=== PATIENT | male | born 1975 | race Caucasian/White ===

== ENCOUNTER 2020-07-15 00:04 | Observation (INO) ==
[2020-07-15] MEDS ORDERED: KETOROLAC 30 MG/ML VIAL IV STA (00:31)
--- NOTE | 2020-07-15 00:37 | Emergency Department Note ---
Impression & Plan Renal colic on left side ED Provider Note NAME: ARMANI SANTANA AGE: 44 SEX: M ARRIVES VIA: Walk-In INFORMANT: Patient ED PROVIDER(S): Margarita Boyle DO CHIEF COMPLAINT: Left flank pain PLAN: Disposition: Admitted to the [facility] service Condition: Stable MEDICAL DECISION MAKING: This is a 44-year-old male patient who presents the emergency department with a 36-hour history of left CVA pain. The patient has a history of a previous left kidney injury from a football game which required aeromedical transport to [place] for what he describes as a ruptured kidney. He describes fully recovering from this. The patient denies any recent trauma or urinary symptoms at this time. CT scan shows no evidence of a stone that would explain his symptoms at this time but there is evidence of hydronephrosis. His symptoms seem to be consistent with renal colic. He is requiring IV analgesia to maintain pain management. [facility] for further management. They will consult urology Triage Nursing notes reviewed and agree them. Prior medical records reviewed Vital Signs: reviewed and remarkable for no significant abnormalities Differential diagnosis: Pyelonephritis, ureteral colic, renal colic obstructive uropathy, kidney stone, renal cyst, ER treatment provided: IV normal saline solution IV Toradol IV Zofran IV Dilaudid x2 Diagnostics interpreted by me: Cardiac Monitoring: Normal sinus rhythm at a rate of 84 Laboratory studies: See below Imaging studies: As per stat rad CT abdomen and pelvis without contrast: No priors. Dependent predominant lung opacity likely hypoventilatory change/atelectasis. No urinary tract calculi. Possible left hydronephrosis though some of this appearance may relate to peripelvic cysts. The left ureter is of normal caliber. There is some asymmetric infiltration around the left kidney. Pyelonephritis/urinary tract infection not excluded. Recommend clinical correlation with UA. If there is concern for hydronephrosis, ultrasound could further assess. Suspect at least one peripelvic renal cyst on the right. Diverticulosis. No diverticulitis or other acute process. Fat-containing left internal hernia without evidence of strangulation and other nonemergent incidental findings. See final report Renal ultrasound: Previous CT from August 2016 is now available for review as well as more recent CT. Suspected peripelvic cyst in the right kidney. No right hydronephrosis. S uspect left hydronephrosis though would question whether there are also left peripelvic cysts. In any case, given similar appearance of left renal collecting system on 2016 study and more recent July 15 study findings appear chronic no left hydroureter on either CT. Bilateral ureteral jets seen on Doppler imaging of bladder HPI: 44/M arrives for evaluation of left flank pain. Approximately 36 hours ago, the patient developed some left sided flank pain that seemed to subside. The patient thought this may be a muscle pain. He took Naprosyn before bed last evening and was feeling somewhat better. He had pain intermittently throughout the evening. But then at 1115 tonight, the pain became quite severe and the patient was nauseated. The patient denies ever having pain quite this severe in the past except for when he had a ruptured kidney from trauma. ROS: See above HPI for pertinent positives & negatives. A total of 10 systems reviewed and were otherwise negative. PAST MEDICAL HISTORY:Previous ruptured kidney from trauma PAST SURGICAL HISTORY:Previous ureteral stent HOME MEDICATIONS:See list ALLERGIES:None VITALS:See Below PHYSICAL EXAMINATION: HEENT: Head - normocephalic and atraumatic Pupils are equal, round, and reactive to light. Extraocular eye muscles are intact, and sclera are anicteric. Nose - moist nasal mucosa without discharge. Mouth - moist buccal mucosa. Oropharynx is nonerythematous and there is no tonsillar exudate or edema noted. Neck: Supple; no JVD, nuchal rigidity, cervical lymphadenopathy, or auscultated bruits. Heart: Regular rate and rhythm. There is a normal S1 and S2 with no murmurs, clicks, or gallops appreciated. Lungs: Clear to auscultation bilaterally with no wheezes, rales, or rhonchi. Abdomen: Soft, completely nontender, nondistended, with good bowel sounds. There are no palpable pulsatile masses or hepatosplenomegaly. There is no guarding, rigidity, or rebound noted. Back: The patient has exquisite left CVA discomfort with no skin lesions noted. Extremities: No evidence of cyanosis, clubbing, or edema. There are easily palpable peripheral pulses. Skin: warm and dry with good turgor and no rashes. ED COURSE: Times/Reassessments: 0020: Patient was evaluated in room C9. A complete history and physical was performed. An IV lock was initiated and labs were drawn as above. The patient is urine was dipped and was positive for trace blood. Patient was given 30 mg of IV Toradol and ordered for a bolus of normal saline solution. 0045: The patient still has severe left CVA pain and cannot lay flat for CT scan. He will be given 1 mg of IV Dilaudid for his pain. The patient went for CT scan of the abdomen/pelvis as described above. The patient is somewhat more comfortable and will go for a renal ultrasound. He continued to complain of fairly severe pain in the left flank and was given a second 1 mg dose of IV Dilaudid. 0540: I reviewed the results of the renal ultrasound with the patient. He remains uncomfortable on exam. I will discuss the case with the [facility] hospitalist Margarita Boyle, DO Past Med/Surg History Social History Smoking Status: Never smoker Hx Alcohol Use: No Hx Substance Use: No Preferred Language: Uzbek Communication Ability: Effective Beliefs That Will Affect Care: None Current Living Situation: Spouse Feels Safe at Home: Yes Assistive Devices: None Allergies Allergies Allergy/AdvReac Type Severity Reaction Status Date / Time No Known Allergies AdvReac Unknown Unverified 07/15/20 00:16 Home Meds Home Medications Medication Instructions Recorded Confirmed pantoprazole 40 mg PO BID 07/15/20 07/15/20 Results & Data (ED) Vital Signs Vital Signs - 24 hr 07/15/20 00:09 07/15/20 01:30 07/15/20 01:40 Temperature 36.5 C Temperature Source Oral Pulse Rate 76 Pulse Rate from SpO2 Sensor 80 Respiratory Rate 20 18 Respiratory Effort / Characteristics Non-Labored Spontaneous Respiratory Depth Normal Blood Pressure 145/95 H 120/75 Blood Pressure Mean 111 89 Pulse Oximetry 99 99 78 L Oxygen Delivery Method Room Air Room Air Room Air Oxygen Flow Rate Sepsis New/Unexplained Change in Mental Status N/A Sepsis Action Taken by Nursing No Action Required 07/15/20 01:41 07/15/20 03:00 07/15/20 03:47 Temperature Temperature Source Pulse Rate Pulse Rate from SpO2 Sensor 60 63 Respiratory Rate 18 Respiratory Effort / Characteristics Respiratory Depth Blood Pressure 123/78 126/64 Blood Pressure Mean 90 76 Pulse Oximetry 98 98 97 Oxygen Delivery Method Nasal Cannula Nasal Cannula Room Air Oxygen Flow Rate 2 2 Sepsis New/Unexplained Change in Mental Status Sepsis Action Taken by Nursing 07/15/20 04:00 07/15/20 04:30 07/15/20 05:00 Temperature Temperature Source Pulse Rate Pulse Rate from SpO2 Sensor 76 65 67 Respiratory Rate 18 20 18 Respiratory Effort / Characteristics Respiratory Depth Blood Pressure 115/54 L 118/78 116/71 Blood Pressure Mean 68 90 79 Pulse Oximetry 96 97 97 Oxygen Delivery Method Room Air Room Air Oxygen Flow Rate Sepsis New/Unexplained Change in Mental Status Sepsis Action Taken by Nursing 07/15/20 05:30 Temperature Temperature Source Pulse Rate Pulse Rate from SpO2 Sensor 62 Respiratory Rate 20 Respiratory Effort / Characteristics Respiratory Depth Blood Pressure 123/70 Blood Pressure Mean 84 Pulse Oximetry 98 Oxygen Delivery Method Oxygen Flow Rate Sepsis New/Unexplained Change in Mental Status Sepsis Action Taken by Nursing Laboratory Data Result diagrams: 07/15/20 00:41 07/15/20 00:41 Lab Results 07/15/20 07/15/20 07/15/20 Range/Units 00:30 00:41 00:41 WBC 6.86 (4.8-10.8) K/uL RBC 5.00 (4.7-6.1) M/uL Hgb 15.3 (14.0-18.0) g/dL Hct 43.1 (42-52) % MCV 86.2 (80-100) fL MCH 30.6 (25-34) pg MCHC 35.5 (32-36) g/dL RDW Std Deviation 39.9 (36.4-46.3) fL RDW Coeff of Milo 12.7 (11.5-14.5) % Plt Count 255 (130-400) K/uL MPV 10.6 H (7.4-10.4) fL Immature Gran % (Auto) 0.3 % Neut % (Auto) 48.6 % Lymph % (Auto) 37.9 % Harper % (Auto) 10.5 % Eos % (Auto) 2.3 % Baso % (Auto) 0.4 % Neut # (Auto) 3.33 (1.4-6.5) K/uL Lymph # (Auto) 2.60 (1.2-3.4) K/uL Harper # (Auto) 0.72 H (0.11-0.59) K/uL Eos # (Auto) 0.16 (0-0.5) K/uL Baso # (Auto) 0.03 (0-0.2) K/uL Immature Gran # (Auto) 0.02 (0.00-0.02) K/uL Sodium 143 (136-145) mmol/L Potassium 3.7 (3.5-5.1) mmol/L Chloride 112 H (98-107) mmol/L Carbon Dioxide 23 (21-32) mmol/L Anion Gap 8.0 (3-11) BUN 19 H (7-18) mg/dl Creatinine 0.95 (0.6-1.4) mg/dl Est Cr Clr Drug Dosing 131.7 ml/min Est GFR ( Amer) 110.8 Est GFR (Non-Af Amer) 95.6 BUN/Creatinine Ratio 19.5 (10-20) Glucose 114 H (70-99) mg/dl Estimat Average Glucose mg/dl Hemoglobin A1c (4.5-5.6) % Calcium 9.0 (8.5-10.1) mg/dl Total Bilirubin 0.3 (0.2-1) mg/dl AST 23 (15-37) U/L ALT 30 (12-78) U/L Alkaline Phosphatase 69 (45-117) U/L Total Protein 7.3 (6.4-8.2) gm/dl Albumin 3.8 (3.4-5.0) gm/dl Globulin 3.5 (2.5-4.0) gm/dl Albumin/Globulin Ratio 1.1 (0.9-2) Lipase 84 (73-393) U/L Urine Color Yellow Urine Appearance Clear (Clear) Urine pH 6.5 (4.5-7.5) Ur Specific [place] 1.027 (1.000-1.030) Urine Protein Negative (Negative) Urine Glucose (UA) Negative (Negative) Urine Ketones Trace H (Negative) Urine Blood Negative (Negative) Urine Nitrite Negative (Negative) Urine Bilirubin Negative (Negative) Urine Urobilinogen Negative (Negative) Ur Leukocyte Esterase Negative (Negative) 07/15/20 Range/Units 00:41 WBC (4.8-10.8) K/uL RBC (4.7-6.1) M/uL Hgb (14.0-18.0) g/dL Hct (42-52) % MCV (80-100) fL MCH (25-34) pg MCHC (32-36) g/dL RDW Std Deviation (36.4-46.3) fL RDW Coeff of Milo (11.5-14.5) % Plt Count (130-400) K/uL MPV (7.4-10.4) fL Immature Gran % (Auto) % Neut % (Auto) % Lymph % (Auto) % Harper % (Auto) % Eos % (Auto) % Baso % (Auto) % Neut # (Auto) (1.4-6.5) K/uL Lymph # (Auto) (1.2-3.4) K/uL Harper # (Auto) (0.11-0.59) K/uL Eos # (Auto) (0-0.5) K/uL Baso # (Auto) (0-0.2) K/uL Immature Gran # (Auto) (0.00-0.02) K/uL Sodium (136-145) mmol/L Potassium (3.5-5.1) mmol/L Chloride (98-107) mmol/L Carbon Dioxide (21-32) mmol/L Anion Gap (3-11) BUN (7-18) mg/dl Creatinine (0.6-1.4) mg/dl Est Cr Clr Drug Dosing ml/min Est GFR ( Amer) Est GFR (Non-Af Amer) BUN/Creatinine Ratio (10-20) Glucose (70-99) mg/dl Estimat Average Glucose 108 mg/dl Hemoglobin A1c 5.4 (4.5-5.6) % Calcium (8.5-10.1) mg/dl Total Bilirubin (0.2-1) mg/dl AST (15-37) U/L ALT (12-78) U/L Alkaline Phosphatase (45-117) U/L Total Protein (6.4-8.2) gm/dl Albumin (3.4-5.0) gm/dl Globulin (2.5-4.0) gm/dl Albumin/Globulin Ratio (0.9-2) Lipase (73-393) U/L Urine Color Urine Appearance (Clear) Urine pH (4.5-7.5) Ur Specific [place] (1.000-1.030) Urine Protein (Negative) Urine Glucose (UA) (Negative) Urine Ketones (Negative) Urine Blood (Negative) Urine Nitrite (Negative) Urine Bilirubin (Negative) Urine Urobilinogen (Negative) Ur Leukocyte Esterase (Negative) Administered Medications Discontinued Medications Acetaminophen (Acetaminophen 325 Mg Tab) 650 mg PO Q4H PRN PRN Reason: pain/fever Stop: 08/14/20 08:04 Last Admin: 07/15/20 09:49 Dose: 650 mg Documented by: [id number] Hydromorphone HCl (Hydromorphone Inj 1 Mg/Ml Syringe) 1 mg IV NOW STA Stop: 07/15/20 00:56 Last Admin: 07/15/20 00:59 Dose: 1 mg Documented by: [id number] Hydromorphone HCl (Hydromorphone Inj 1 Mg/Ml Syringe) 1 mg IV NOW STA Stop: 07/15/20 01:51 Last Admin: 07/15/20 02:04 Dose: 1 mg Documented by: [id number] Sodium Chloride (Nss 1000ml) 1,000 mls @ 999 mls/hr IV .[id number] SEE Stop: 07/15/20 01:45 Last Infusion: 07/15/20 01:44 Dose: 0 mls/hr Documented by: [id number] Admin: 07/15/20 00:42 Dose: 999 mls/hr Documented by: [id number] Lactated Ringer's (Lr) 1,000 mls @ 80 mls/hr IV .[id number] SEE Stop: 08/14/20 08:04 Last Infusion: 07/16/20 12:05 Dose: 0 mls/hr Documented by: [id number] Admin: 07/16/20 07:31 Dose: 80 mls/hr Documented by: [id number] Infusion: 07/16/20 07:31 Dose: 80 mls/hr Documented by: [id number] Infusion: 07/16/20 07:11 Dose: 80 mls/hr Documented by: [id number] Admin: 07/15/20 20:19 Dose: 80 mls/hr Documented by: [id number] Infusion: 07/15/20 20:19 Dose: 80 mls/hr Documented by: [id number] Admin: 07/15/20 09:24 Dose: 80 mls/hr Documented by: [id number] Ioversol (Optiray 300) 50 ml IV ONCE ONE Stop: 07/15/20 13:49 Last Admin: 07/15/20 22:46 Dose: Not Given Documented by: [id number] Ketorolac Tromethamine (Ketorolac 30 Mg/Ml Vial) 30 mg IV NOW STA Stop: 07/15/20 00:32 Last Admin: 07/15/20 00:42 Dose: 30 mg Documented by: [id number] Morphine Sulfate (Morphine Sulfate 4 Mg/Ml 1 Ml Carp\Vial) 4 mg IV Q4H PRN PRN Reason: Pain Stop: 07/29/20 06:38 Last Admin: 07/15/20 12:58 Dose: 4 mg Documented by: [id number] Ondansetron HCl (Ondansetron Inj 2 Mg/Ml 2 Ml Vial) 4 mg IV NOW STA Stop: 07/15/20 00:32 Last Admin: 07/15/20 00:42 Dose: 4 mg Documented by: [id number] Admin: 07/15/20 00:42 Dose: 4 mg Documented by: [id number] Pantoprazole Sodium (Pantoprazole 40 Mg Tab) 40 mg PO BID SEE Stop: 08/14/20 08:59 Last Admin: 07/16/20 07:30 Dose: Not Given Documented by: [id number] Admin: 07/15/20 20:20 Dose: Not Given Documented by: [id number] Admin: 07/15/20 09:25 Dose: 40 mg Documented by: [id number] Discharge Plan Visit Data Chief Complaint: Back Injury/Pain Stated Complaint: KIDNEY PAIN LEFT SIDE ED Provider: Margarita Boyle Discharge Problem: Renal colic on left side Patient Disposition: Admitted As Inpatient Discharge Instructions Interventions: ED Discharge Assessment Last Done: 07/15/20 07:37
[2020-07-15 00:38] LABS: Appearance Urine Clear (Clear); Bilirubin Urine Negative (Negative); Blood Urine Negative (Negative); Color Urine Yellow; Glucose Urine UA Negative (Negative); Ketones Urine Trace (Negative); Leukocyte Esterase Urine Negative (Negative); Nitrite Urine Negative (Negative); Protein Urine Negative (Negative); Specific Gravity Urine 1.027 (1.000-1.030); Urobilinogen Urine Negative (Negative); pH Urine 6.5 (4.5-7.5)
[2020-07-15] MEDS: ONDANSETRON INJ 2 MG/ML 2 ML VIAL IV STA (00:42)
[2020-07-15] MEDS ORDERED: SODIUM CHLORIDE 0.9% 1000ML 1,000 ML IV SCH (00:45)
[2020-07-15 00:55] LABS: Basophils # (auto) 0.03 K/uL (0-0.2); Basophils % (auto) 0.4 %; Eosinophils # (auto) 0.16 K/uL (0-0.5); Eosinophils % (auto) 2.3 %; Hematocrit (blood only) 43.1 % (42-52); Hemoglobin 15.3 g/dL (14.0-18.0); Immature Granulocytes # (auto) 0.02 K/uL (0.00-0.02); Immature Granulocytes % (auto) 0.3 %; Lymphocytes % (auto) 37.9 %; Mean Corpuscular Hemoglobin 30.6 pg (25-34); Mean Corpuscular Hgb Conc 35.5 g/dL (32-36); Mean Corpuscular Volume 86.2 fL (80-100); Mean Platelet Volume 10.6 fL (7.4-10.4); Monocytes # (auto) 0.72 K/uL (0.11-0.59); Monocytes % (auto) 10.5 %; Neutrophils # (auto) 3.33 K/uL (1.4-6.5); Neutrophils % (auto) 48.6 %; Platelet Count 255 K/uL (130-400); RDW Coefficient of Variation 12.7 % (11.5-14.5); RDW Standard Deviation 39.9 fL (36.4-46.3); White Blood Count 6.86 K/uL (4.8-10.8)
[2020-07-15] MEDS ORDERED: HYDROmorphone INJ 1 MG/ML SYRINGE IV STA ×2 (00:55→01:50)
[2020-07-15 01:16] LABS: Albumin Level 3.8 gm/dl (3.4-5.0); BUN Creatinine Ratio 19.5 (10-20); Creatinine Clr Calc Pharmacy 131.7 ml/min; Est GFR (African American) 110.8; Est GFR (Non-African American) 95.6; Potassium 3.7 mmol/L (3.5-5.1)
[2020-07-15 01:19] LABS: Albumin Globulin Ratio 1.1 (0.9-2); Bilirubin,Total 0.3 mg/dl (0.2-1); Globulin 3.5 gm/dl (2.5-4.0); Total Protein 7.3 gm/dl (6.4-8.2)
[2020-07-15 05:33] VITALS: O2SAT 98
[2020-07-15] MEDS ORDERED: OXYCODONE HCL IR 5 MG TAB (IMMEDIATE RELEASE) PO PRN (06:39)
[2020-07-15] MEDS ORDERED: LORazepam 0.5 MG/1 ML VIAL IV PRN (06:39)
[2020-07-15] MEDS ORDERED: KETOROLAC TROMETHAMINE 15 MG/ML VIAL IV PRN (06:39)
[2020-07-15] MEDS ORDERED: PROMETHAZINE HCL 12.5 MG in SODIUM CHLORIDE 0.9% 50 ML IV PRN (06:39)
[2020-07-15] MEDS ORDERED: MoRPHine SULFATE 4 MG/ML 1 ML CARP\\VIAL IV PRN (06:39)
--- NOTE | 2020-07-15 06:43 | History & Physical Report ---
Date of Service July 15, 2020 Assessment & Plan (1) Renal colic on left side: Hx left hydronephrosis post renal pelvis injury status post stent placement 2016 GERD, stable on PPI Hyperglycemia rule out DM F Analgesia Urology consult Re: Left flank pain, abnormal CT N.p.o. until patient evaluated by urology in anticipation of procedure Check hemoglobin A1c DVT prophylaxis. SCDs Full code Text document was generated using P[employer] voice recognition software. It may contain grammatical or spelling errors. Kindly contact undersigned for clarification of any documentation item in question. History of Present Illness Chief Complaint: Left flank pain Primary Care Provider: Boby Gonzalez MD History obtained from patient and records. Medical history significant for left renal pelvis injury status post stent placement, GERD. Patient sustained left renal pelvis injury secondary to contact football collision August 2016. [place] [facility] [place] Follow-up renal ultrasound 2016 showed evidence of mild left hydronephrosis. Last week patient noted achy tolerable left flank pain which lasted about 2 days. No recollection of recent trauma/exertion. No other accompanying symptoms. 3 days ago patient noted recurrence of left flank pain which subsequently worsened overnight. No chest pain, no S OB, no fever, no chills, no hematuria. Patient drove himself to the ER. 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 Allergies Allergy/AdvReac Type Severity Reaction Status Date / Time No Known Allergies AdvReac Unknown Unverified 07/15/20 00:16 Home Medications Home Medications Medication Instructions Recorded Confirmed Type pantoprazole 40 mg PO BID 07/15/20 07/15/20 History Past Med/Surg History Social History Smoking Status: Never smoker Preferred Language: Togolese Feels Safe at Home: Yes Review of Systems Review of Systems: As per HPI, all 10 systems reviewed, all other ROS negative Physical Exam Physical Exam: GENERAL: Slightly uncomfortable, no respiratory distress SKIN: Normal color, warm HEENT: [place] palpebral conjunctivae, no ptosis, dry buccal mucosa NECK : Supple, no tenderness CHEST : CTA, no tenderness HEART : RRR, no obvious murmurs ABDOMEN: Some distention, nontender BACK : Left flank tenderness EXTREMITIES : No LE swelling/tenderness, no other conspicuous deformities noted NEUROLOGIC : Coherent, no facial asymmetry, no other gross focality Results & Data Results & Data ([facility]) Vital Signs (Past 12 Hours) Vital Signs Temp Pulse Resp BP Pulse Ox 07/15/20 06:00 18 124/76 98 07/15/20 05:30 20 123/70 98 07/15/20 05:00 18 116/71 97 07/15/20 04:30 20 118/78 97 07/15/20 04:00 18 115/54 L 96 07/15/20 03:47 126/64 97 07/15/20 03:00 18 123/78 98 07/15/20 01:41 98 07/15/20 01:40 78 L 07/15/20 01:30 18 120/75 99 07/15/20 00:09 36.5 C 76 20 145/95 H 99 Laboratory Results Laboratory Results WBC 6.86 K/uL (4.8-10.8) 07/15/20 00:41 RBC 5.00 M/uL (4.7-6.1) 07/15/20 00:41 Hgb 15.3 g/dL (14.0-18.0) 07/15/20 00:41 Hct 43.1 % (42-52) 07/15/20 00:41 MCV 86.2 fL (80-100) 07/15/20 00:41 MCH 30.6 pg (25-34) 07/15/20 00:41 MCHC 35.5 g/dL (32-36) 07/15/20 00:41 RDW Std Deviation 39.9 fL (36.4-46.3) 07/15/20 00:41 RDW Coeff of Milo 12.7 % (11.5-14.5) 07/15/20 00:41 Plt Count 255 K/uL (130-400) 07/15/20 00:41 MPV 10.6 fL (7.4-10.4) H 07/15/20 00:41 Immature Gran % (Auto) 0.3 % 07/15/20 00:41 Neut % (Auto) 48.6 % 07/15/20 00:41 Lymph % (Auto) 37.9 % 07/15/20 00:41 Maury % (Auto) 10.5 % 07/15/20 00:41 Eos % (Auto) 2.3 % 07/15/20 00:41 Baso % (Auto) 0.4 % 07/15/20 00:41 Neut # (Auto) 3.33 K/uL (1.4-6.5) 07/15/20 00:41 Lymph # (Auto) 2.60 K/uL (1.2-3.4) 07/15/20 00:41 Maury # (Auto) 0.72 K/uL (0.11-0.59) H 07/15/20 00:41 Eos # (Auto) 0.16 K/uL (0-0.5) 07/15/20 00:41 Baso # (Auto) 0.03 K/uL (0-0.2) 07/15/20 00:41 Immature Gran # (Auto) 0.02 K/uL (0.00-0.02) 07/15/20 00:41 Sodium 143 mmol/L (136-145) 07/15/20 00:41 Potassium 3.7 mmol/L (3.5-5.1) 07/15/20 00:41 Chloride 112 mmol/L (98-107) H 07/15/20 00:41 Carbon Dioxide 23 mmol/L (21-32) 07/15/20 00:41 Anion Gap 8.0 (3-11) 07/15/20 00:41 BUN 19 mg/dl (7-18) H 07/15/20 00:41 Creatinine 0.95 mg/dl (0.6-1.4) 07/15/20 00:41 Est Cr Clr Drug Dosing 131.7 ml/min 07/15/20 00:41 Est GFR ( Amer) 110.8 07/15/20 00:41 Est GFR (Non-Af Amer) 95.6 07/15/20 00:41 BUN/Creatinine Ratio 19.5 (10-20) 07/15/20 00:41 Glucose 114 mg/dl (70-99) H 07/15/20 00:41 Calcium 9.0 mg/dl (8.5-10.1) 07/15/20 00:41 Total Bilirubin 0.3 mg/dl (0.2-1) 07/15/20 00:41 AST 23 U/L (15-37) 07/15/20 00:41 ALT 30 U/L (12-78) 07/15/20 00:41 Alkaline Phosphatase 69 U/L (45-117) 07/15/20 00:41 Total Protein 7.3 gm/dl (6.4-8.2) 07/15/20 00:41 Albumin 3.8 gm/dl (3.4-5.0) 07/15/20 00:41 Globulin 3.5 gm/dl (2.5-4.0) 07/15/20 00:41 Albumin/Globulin Ratio 1.1 (0.9-2) 07/15/20 00:41 Lipase 84 U/L (73-393) 07/15/20 00:41 Urine Color Yellow 07/15/20:30 Urine Appearance Clear (Clear) 07/15/20: Urine pH 6.5 (4.5-7.5) 07/15/20 00:30 Ur Specific [place] 1.027 (1.000-1.030) 07/15/20 00:30 Urine Protein Negative (Negative) 07/15/20 00:30 Urine Glucose (UA) Negative (Negative) 07/15/20 00:30 Urine Ketones Trace (Negative) H 07/15/20 00:30 Urine Blood Negative (Negative) 07/15/20 00:30 Urine Nitrite Negative (Negative) 07/15/20 00:30 Urine Bilirubin Negative (Negative) 07/15/20 00:30 Urine Urobilinogen Negative (Negative) 07/15/20 00:30 Ur Leukocyte Esterase Negative (Negative) 07/15/20 00:30 Diagnostic Findings Renal ultrasound: There are again noted multiple dilated cystic spaces within the left renal sinus. This is unchanged and favors peripelvic cysts. Underlying left-sided hydronephrosis would be difficult to exclude by ultrasound. Dedicated CT urogram could be used for further evaluation if clinically warranted. CT abdomen pelvis: 1. Questionable left-sided hydronephrosis appears to be due to multiple large peripelvic cysts. This remains unchanged. The left ureter is normal in course and caliber. No renal or ureteral stones identified. 2. There is minimal left perinephric edema which could be chronic or related to underlying pyelonephritis/urinary tract infection. Recommend correlation with urinalysis. 3. Colonic diverticulosis. 4. No bowel wall thickening or obstruction. 5. Small fat-containing left inguinal hernia. Code Status & VTE Plan VTE Prophylaxis Plan VTE Prophylaxis will be ordered: Yes
[2020-07-15] MEDS ORDERED: ACETAMINOPHEN 325 MG TAB PO PRN (08:05)
--- NOTE | 2020-07-15 08:06 | CT Scan Report ---
ABDOMEN AND PELVIS CT WITHOUT CONTRAST CT DOSE: 1076.56 mGycm HISTORY: Left flank pain. eval for left sided kidney stone TECHNIQUE: Multiaxial CT images of the abdomen and pelvis were performed without contrast. A dose lo wering technique was utilized adhering to the principles of ALARA. COMPARISON STUDY: Abdomen and pelvis CT 08/20/2016. FINDINGS: Mild dependent changes seen within the lung bases posteriorly. No pneumoperitoneum. No pneu matosis. No fractures within the visualized osseous structures. The unenhanced liver, gallbladder, sp rhianna, adrenal glands, and pancreas are within normal limits. A small parapelvic cysts within the righ t kidney. No renal stones or ureteral stones identified. Questionable left-sided hydronephrosis appea rs to be due to multiple large peripelvic cyst. This is similar to the prior study. The left ureter i s normal in course and caliber. No ureteral stones identified. The bladder is not well-distended but appears unremarkable. Small fat-containing left inguinal hernia. No retroperitoneal lymphadenopathy. Normal caliber abdominal aorta. Colonic diverticulosis. No evidence for acute diverticulitis. No beatriz l wall thickening or obstruction. Minimal left perinephric edema. IMPRESSION: 1. Questionable left-sided hydronephrosis appears to be due to multiple large peripelvic cysts. This remains unchanged. The left ureter is normal in course and caliber. No renal or ureteral stones ident ified. 2. There is minimal left perinephric edema which could be chronic or related to underlying pyelonephr itis/urinary tract infection. Recommend correlation with urinalysis. 3. Colonic diverticulosis. 4. No bowel wall thickening or obstruction. 5. Small fat-containing left inguinal hernia. ACT 112: Negative or not required by law. Electronically signed by: Jerald Sheffield M.D. 07/15/2020 8:05 AM
--- NOTE | 2020-07-15 08:09 | Ultrasound Report ---
RENAL ULTRASOUND HISTORY: Abnormal CT. Left flank pain. EVAL FOR LEFT HYDRONEPHROSIS COMPARISON: Abdomen and pelvis CT 07/15/2020. FINDINGS: Right kidney: 11.3 cm. There is a 1.7 cm lower pole parapelvic cyst. No hydronephrosis. Normal cortic omedullary differentiation and cortical thickness. Left kidney: 12.8 cm. There are again noted multiple dilated cystic spaces within the left renal sinu s. This is unchanged and favors peripelvic cysts. Underlying hydronephrosis would be difficult to exc lude by ultrasound. Normal corticomedullary differentiation and cortical thickness. Bladder: No bladder wall thickening. The bilateral ureteral jets were identified. IMPRESSION: There are again noted multiple dilated cystic spaces within the left renal sinus. This is unchanged a nd favors peripelvic cysts. Underlying left-sided hydronephrosis would be difficult to exclude by ult rasound. Dedicated CT urogram could be used for further evaluation if clinically warranted. ACT 112: Negative or not required by law. Electronically signed by: Jerald Sheffield M.D. 07/15/2020 8:07 AM
[2020-07-15 08:32] LABS: Estimated Average Glucose 108 mg/dl; Hemoglobin A1C 5.4 % (4.5-5.6)
[2020-07-15] MEDS: LACTATED RINGER'S 1,000 ML IV SCH ×2 (09:24→20:19)
[2020-07-15] MEDS: PANTOprazole 40 MG TAB PO SCH ×2 (09:25→20:20)
--- NOTE | 2020-07-15 13:27 | Urology Consultation ---
Date of Consultation July 15, 2020 Assessment & Plan (1) Renal colic on left side: Plan IVP and keep patient n.p.o. may need to have retrograde stentIf patient appears to have left UPJ obstruction Present on Admission?: Yes History of Present Illness Reason for Consultation: left flank pain ,abnormal ct Attending Physician: Zahra Tubbs MD History of Present Illness Patient is a 44-year-old male who had a football injury to his left flank in 2015 oh 2016 which the patient states damaged his left kidney.He had a stent placed at that time.Subsequently the stent was removed after several weeks and he had a renal scan which appeared normalI do not have access to this but the patient is pretty clear on the story and this was done through [employer] who is records we may be able to access. The patient hadOnset of left flank pain earlier this week that was similar in nature to this pain and it became increasingly severe requiring him to come to the emergency room.Renal sonogram suggested left parapelvic cysts without hydronephrosis and no stone.CT scan without contrast was performed and again the diagnosis per radiology was probable parapelvic cysts but could not completely rule out hydronephrosis. Listening to the patient's story it does appear most consistent with renal colic.Reviewed with radiology and agree that an IVP would be the best film to assess for obstruction. Patient denies hematuria or fever urinalysis is normalPatient is afebrile Allergies Allergy/AdvReac Type Severity Reaction Status Date / Time No Known Allergies AdvReac Unknown Unverified 07/15/20 00:16 Home Medications Home Medications Medication Instructions Recorded Confirmed Type pantoprazole 40 mg PO BID 07/15/20 07/15/20 History Patient History Social History Smoking Status: Never smoker Do You Dip or Chew Tobacco: No; Hx Alcohol Use: No Hx Substance Use: No Preferred Language: Bangladeshi Communication Ability: Effective Beliefs That Will Affect Care: None Current Living Situation: Spouse Feels Safe at Home: Yes Review of Systems Review of Systems: All systems reviewed & are unremarkable except as noted in HPI & below Physical Exam Constitutional: well developed Eyes: PERRL, conjunctivae normal, anicteric sclerae ENMT: external ear and nose normal, oropharynx normal Neck: trachea midline, no thyromegaly Respiratory: normal respiratory effort Cardiovascular: Rate/Rhythm: regular rate Gastrointestinal (Abdomen): normal bowel sounds, soft, nontender, no hepatosplenomegaly Musculoskeletal: no cyanosis or clubbing, extremities motor strength 5/5 Skin: no rashes, warm and dry Neurologic: CN's II-XI intact bilaterally Psychiatric: A+Ox3, euthymic affect Genitourinary: + CVA tenderness (Left CVA tenderness) Lymphatic: no cervical or axillary lymphadenopathy Results & Data ([facility]) Vital Signs (Past 12 Hours) Vital Signs Temp Pulse Resp BP BP Pulse Ox 07/15/20 08:50 36.4 C L 74 18 124/71 98 07/15/20 06:00 18 124/76 98 07/15/20 05:30 20 123/70 98 07/15/20 05:00 18 116/71 97 07/15/20 04:30 20 118/78 97 07/15/20 04:00 18 115/54 L 96 07/15/20 03:47 126/64 97 07/15/20 03:00 18 123/78 98 07/15/20 01:41 98 07/15/20 01:40 78 L 07/15/20 01:30 18 120/75 99 PG Care Time/CCT Total # of Minutes Spent Total Time Spent with Patient: Total time spent is greater than 50% in coordination of care (as documented) at patient's floor/unit and/or counseling patient: Coding Level of Care Code 34572 Inpt Consult Level 3 Diagnoses Renal colic on left side N23
[2020-07-15] MEDS ORDERED: OPTIRAY 300 IV ONE (13:48)
--- NOTE | 2020-07-15 14:59 | XRay Report ---
IVP CLINICAL HISTORY: r/o upj obstruction. Left flank pain. COMPARISON STUDY: CT of the abdomen and pelvis and renal ultrasound July 15, 2020. CT of the ab domen and pelvis August 20, 2016. TECHNIQUE: Initially, a fourchette sewer KUB was obtained. Intravenous pyelogram was then performed following in travenous injection of 100 cc of Optiray 300. 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 The bowel gas pattern is normal. Both nephrogram s are symmetric following intravenous contrast administration. Note is made of dilatation of a left u pper pole calyx. Otherwise, there is no collecting system dilatation. No upper tract filling defects are identified. There is no irregular narrowing of the left upper pole infundibulum. Infundibulum ross ears smooth. Otherwise, this exam is normal. Bladder suboptimally assessed on this exam. Patient was unable to void. IMPRESSION: 1. Dilatation of a left upper pole renal calyx. Although the etiology is unclear, this may be due to mass effect by adjacent parapelvic cysts shown on prior CT. Otherwise, no collecting system dilatatio n. 2. No urinary calculi. 3. No upper tract filling defects. ACT 112: Negative or not required by law. Electronically signed by: Bola Kent M.D. 07/15/2020 2:58 PM
[2020-07-15 15:30] VITALS: TEMP 97.9
[2020-07-16] MEDS: PANTOprazole 40 MG TAB PO SCH (07:30)
[2020-07-16] MEDS: LACTATED RINGER'S 1,000 ML IV SCH (07:31)
--- NOTE | 2020-07-16 12:57 | Urology Progress Note ---
Date of Service July 16, 2020 Assessment & Plan Admission and Anticipated Discharge Date Admission Date: July 15, 2020 Subjective Hospital day 2 for left flank pain Patient is afebrile vital signs are stable Voiding without difficulty Patient says the flank pain that he is currently having is more of an annoyance than the severe pain that brought him to the hospital I reviewed his ultrasound CT and IVP He does have parapelvic cysts on the left by CT He had an IVP which shows prompt bilateral uptake of dye and excretion of dye into the collecting system In the in there is no UPJ obstruction He does have dilatation of the left upper pole calyceal system possibly due to compression from a parapelvic cyst Patient says he had a football injury to his left kidney 2016 requiring stenting in [place] so I do not know if this dilatation may be old On the IVP the dilated calyx does fill out within 5 minutes so I doubt it is very obstructed I discussed treatment options with him which would include attempt at stent placement into the dilated calyx although I did explain to him this may be somewhat difficult and if it is not possible to place the stent he may get enough swelling or bleeding at the symptoms worsen. I also told him that if the cysts were compressing the calyx that stenting would not be a permanent fix At this point he is content just to watch this If this flank pain becomes recurrent would recommend that he be seen at a tertiary referral center where they have interventional radiologists that could possibly drain the parapelvic cysts Physical Exam Physical Exam: Constitutional Well-developed well-nourished In no acute distress, Healthy appearing Neuro/psych Alert and oriented x3 Normal mood Normal affect Normal coordination Skin Normal color Normal turgor No rashes Warm and Dry Neck Normal visual inspection Pulmonary Normal rhythm and effort No respiratory distress No audible wheezes Able to speak in complete sentences Cardiac No peripheral edema Results & Data ([facility]) Laboratory Results PG Care Time/CCT Total # of Minutes Spent Total Time Spent with Patient: Total time spent is greater than 50% in coordination of care (as documented) at patient's floor/unit and/or counseling patient: Coding Level of Care Code 66212 Subseq Hosp Care Lvl 2
[2020-07-16 13:26] VITALS: BP 132/76; PULSE 84
--- NOTE | 2020-07-16 15:21 | Discharge Summary ---
Date of Service July 16, 2020 Admission HPI Per Admitting Provider History obtained from patient and records. Medical history significant for left renal pelvis injury status post stent placement, GERD. Patient sustained left renal pelvis injury secondary to contact football collision August 2016. Underwent left DJ stent placement at [facility]. Follow-up renal ultrasound 2016 showed evidence of mild left hydronephrosis. Last week patient noted achy tolerable left flank pain which lasted about 2 days. No recollection of recent trauma/exertion. No other accompanying symptoms. 3 days ago patient noted recurrence of left flank pain which subsequently worsened overnight. No chest pain, no S OB, no fever, no chills, no hematuria. Patient drove himself to the ER. 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 Diagnosis Left flank pain Discharge Exam Constitutional WD/WN, vitals as above no acute distress Eyes PERRL, conjunctivae normal, anicteric sclerae ENMT external ear and nose normal, oropharynx normal Neck trachea midline, no thyromegaly Respiratory normal respiratory effort, lungs clear to auscultation Cardiovascular RRR, no murmur, no edema Gastrointestinal (Abdomen) Inspection/Auscultation: no abdominal edema Percussion/Palpation: abdomen soft; abdomen nontender (No CVA tenderness) Musculoskeletal no cyanosis or clubbing, extremities motor strength 5/5 Skin no rashes, warm and dry Neurologic PERRL, EOMI, accommodation nl, no face palsy, no dysarthria Psychiatric A+Ox3, euthymic affect Discharge Data Allergies Allergy/AdvReac Type Severity Reaction Status Date / Time No Known Allergies AdvReac Unknown Unverified 07/15/20 00:16 Consultations 07/15/20 05:46 ED Decision to Admit Stat 07/15/20 08:05 Consult Urology Routine 07/16/20 12:34 Burn CD for patient Stat Ordered Studies 07/15/20 US renal/blad retro comp Routine 07/15/20 00:31 CT abd pelvis wo con Urgent Hospital Course (1) Acute left flank pain: Patient admitted with a left flank pain: Symptom has resolved, CT abdomen pelvis showed left-sided hydro-nephrosis no renal or ureteric stone noted on CT abdomen pelvis Patient is afebrile vital signs are stable Voiding without difficulty Renal function remains within normal limit Appreciate input from urology intravenous pyelogram, shows no evidence of ureteral pelvic junction obstruction There is dilatation of the left upper pole calyceal system possibly due to compression from a parapelvic cyst Patient's left flank pain almost resolved this morning, ambulating in hallway, no discomfort, no dysuria, No further urologic intervention needed Patient was seen at [facility] urology in 2016, Recommends continued follow-up at [facility] For future recurrence of left flank pain, or symptoms: Will need to be seen at a tertiary referral center/[place] for possible interventional radiologists guided drain the parapelvic cysts Patient is stable to be discharged home today Total Time Total Time Spent Total Time Spent (In Minutes): 35 minutes Total Time Includes: Discharge Planning and Medication Reconciliation Discharge Plan Discharge Items Patient Disposition: Home - Self-Care Reason For Visit: RENAL COLIC Activity: Resume your previous activity Non-emergency contact: Primary Care Provider Call non-emergency contact if: you have any medication questions Follow-up/Referrals: Boby Gonzalez MD [Primary Care Provider] - 07/22/20 11:20 am (Date & Time 07/22/2020 11:20 AM Provider Chapincito Mckeon MD Department Internal Medicine [facility] ) Diet: Regular Addtl Attending Provider Instructions: follow up with Urology at [place] Pending Studies at Discharge: No Stand-Alone Forms: My [facility] [employer], Smoking Cessation Medications and DC Order Prescriptions: Continued pantoprazole 40 mg tablet,delayed release (DR/EC) 40 mg PO BID RF: 0 Discharge Orders: Discharge Order (Routine); Ordered 07/16/20 Ordered By: Zahra Braun/Other Patient Handouts: ED Kidney Stone w/ Colic Admission Data Admit Date/Time: 07/15/20 06:36 Attending Provider: Zahra Tubbs Admit Provider: Art Montes De Oca Primary Care Provider: Boby Gonzalez Other Providers: Art Montes De Oca ; Abdirizak Ruiz ; Eric Rg Howard I. ; Ruben Jones ; Dyana Hicks ; Janice Raya ; Sami Arceo ; Jazlyn Dennison ; Micki Montes De Oca ; Migel Diallo ; Eli Garcia ; Connie Yepez Other Interventions: Discharge Summary Assessment (RN) Last Done: 07/16/20 13:25
== END 2020-07-16 13:39 | disposition home or self-care (01) ==
LOC: ED 00:04 → INTOOBSV 06:36 → 3N 06:36